=== PATIENT | female | born 1985 | race Two or more races ===

== ENCOUNTER 2016-12-08 08:04 | Inpatient (IN) | payer OTHER ==
[2016-12-08] VITALS (11 sets, daily range): BP systolic 83–119; BP diastolic 54–83
[~2016-12-08] VITALS: Ht 157.5 cm; Wt 52.6 kg
[~2016-12-08 08:04] MED LIST: Dexamethasone 20mg/5ml IVP ONE; ceFAZolin sod 1 GM in NS 55 ML IVPB ONE
[2016-12-08] MEDS ORDERED: NORCO 5-325 TA1 EAC1 ORAL (08:24)
[2016-12-08] MEDS ORDERED: Lidocaine 1% Plain 30 ml INJ ONE (09:13)
[2016-12-08] MEDS ORDERED: Thrombin 5000 units TOPIC ONE (09:13)
[2016-12-08] MEDS ORDERED: Ropivacaine 5mg/ml Vial 20ml INJ ONE (09:14)
[2016-12-08] MEDS ORDERED: Bacitracin 50000 Units Vial ONE (09:14)
[2016-12-08] MEDS ORDERED: Vancomycin 1gm inj IVPB ONE (09:15)
[2016-12-08] MEDS ORDERED: traMADol 50mg tab ORAL PRN (09:30)
[2016-12-08] MEDS ORDERED: PCA HYDROmorphone 1mg/ml 30 ML IV PRN (09:30)
[2016-12-08] MEDS ORDERED: Tylenol #3 tab (300mg/30mg) ORAL PRN (09:30)
[2016-12-08] MEDS ORDERED: oxyCODONE 5mg IR tab ORAL PRN ×2 (09:30)
[2016-12-08] MEDS ORDERED: Norco 10mg/325mg tab ORAL PRN (09:30)
[2016-12-08] MEDS ORDERED: Morphine Sulfate 4mg/ml Inj IM PRN (09:30)
[2016-12-08] MEDS ORDERED: Surgicel 4in x 8in TOPIC ONE (09:39)
[2016-12-08] MEDS ORDERED: LR 1000ml ONE (10:00)
[2016-12-08] MEDS ORDERED: Metoprolol 5mg/5ml Inj ONE (10:00)
[2016-12-08] MEDS ORDERED: Neostigmine 1mg/ml 10ml Inj ONE (10:00)
[2016-12-08] MEDS ORDERED: Zemuron 50mg/5ml Inj IV ONE (10:00)
[2016-12-08] MEDS ORDERED: fentaNYL 100 mcg/2 mL IV ONE (10:00)
[2016-12-08] MEDS ORDERED: Sterile Water Irrig 1000ml IRRIG ONE (10:00)
[2016-12-08] MEDS ORDERED: Lidocaine 1% MPF 10mg/ml 5ml ONE (10:00)
[2016-12-08] MEDS ORDERED: Labetalol 5mg/ml 20ml vial IV ONE (10:00)
[2016-12-08] MEDS ORDERED: fentaNYL 250mcg/5ml ONE (10:00)
[2016-12-08] MEDS ORDERED: Propofol 10mg/ml 20ml IV ONE (10:00)
[2016-12-08] MEDS ORDERED: Glycopyrrolate 0.2mg/ml 1ml Vial ONE (10:00)
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
--- NOTE | 2016-12-08 10:09 | Pre-Procedure Note/Attestation ---
Pre-Procedure Note/Attestation Complete Prior to Procedure Procedure Narrative: Artificial Disk Replacement, possible fusion: C4-5, C5-6 Indications for Procedure Pre-Operative Diagnosis: Postraumatic Neck Pain, Disk Protrusion Attestation I attest that I discussed the nature of the procedure; its benefits; risks and complications; and alternatives (and the risks and benefits of such alternatives ), prior to the procedure, with the patient (or the patient's legal registration representative). I attest that, if there was a reasonable possibility of needing a blood transfusion, the patient (or the patient's legal registration representative) was given the [facility] standardized written summary, pursuant to the [place] Blood Safety Act ([place] Health and Safety Code # 1645, as amended). I attest that I re-evaluated the patient just prior to the surgery and that there has been no change in the patient's H&P, except as documented below: PIERRE DEL ROSARIO Dec 08, 2016 10:09
[2016-12-08] MEDS ORDERED: LR 1000ml 1,000 ML IVLG SCH (11:04)
[2016-12-08] MEDS ORDERED: Labetalol 5mg/ml 20ml vial IV PRN (11:15)
[2016-12-08] MEDS ORDERED: Hydromorphone 0.5mg/0.5ml inj IVP PRN (11:15)
[2016-12-08] MEDS ORDERED: fentaNYL 100 mcg/2 mL IV PRN (11:15)
[2016-12-08] MEDS ORDERED: Metoclopramide 10mg/2ml Inj IVP PRN (11:15)
[2016-12-08] MEDS ORDERED: Oxycodone/Acetaminophen 5-325 ORAL PRN (11:15)
[2016-12-08] MEDS ORDERED: DiphenhydrAMINE 50mg/ml Inj IVP PRN (11:15)
[2016-12-08] MEDS ORDERED: Norco 7.5mg/325mg tab ORAL PRN (11:15)
[2016-12-08] MEDS ORDERED: LORazepam Inj 2mg/ml 1ml IV PRN (11:15)
[2016-12-08] MEDS ORDERED: Atropine Inj 1mg/10ml Syr IV PRN (11:15)
[2016-12-08] MEDS ORDERED: Norco 5mg/325mg tab ORAL PRN (11:15)
[2016-12-08] MEDS ORDERED: Midazolam 2mg/2ml Inj IVP PRN (11:15)
[2016-12-08] MEDS ORDERED: Meperidine 25mg/ml Inj IV PRN (11:15)
--- NOTE | 2016-12-08 11:21 | Immediate Post-Op Evaluation ---
Immediate Post-Op Evalulation Immediate Post-Op Evalulation Procedure: ADR C4-5, C5-6 Date of Evaluation: Dec 08, 2016 Time of Evaluation: 13:37 IV Fluids: 1100 LR Blood Products: 0 Estimated Blood Loss: 75 Urinary Output: 0 Blood Pressure Systolic: 87 Blood Pressure Diastolic: 53 Pulse Rate: 77 Respiratory Rate: 16 O2 Sat by Pulse Oximetry: 94 Pain Score (1-10): 2 Nausea: No Vomiting: No Complications 0 Patient Status: awake, reacts, patent, extubated, none Hydration Status: adequate Dru Grams Ancef IV Given Within 1 Hr of Incision: Yes Time Given: 10:16 Maycol Luciano MD Dec 08, 2016 11:21
--- NOTE | 2016-12-08 11:28 | 48 Hour Post Anesthesia Eval ---
Post Anesthesia Evaluation Procedure: ADR C4-5, C5-6 Date of Evaluation: Dec 08, 2016 Time of Evaluation: 15:48 Blood Pressure Systolic: 106 0: 62 Pulse Rate: 78 Respiratory Rate: 18 Temperature (Fahrenheit): 98.2 O2 Sat by Pulse Oximetry: 100 Airway: patent Nausea: No Vomiting: No Pain Intensity: 3 Hydration Status: adequate Cardiopulmonary Status: Stable Mental Status/LOC: patient returned to baseline Follow-up Care/Observations: 0 Post-Anesthesia Complications: 0 Follow-up care needed: ready to discharge Maycol Luciano MD Dec 08, 2016 11:27
[2016-12-08] MEDS ORDERED: Acetaminophen (Non formulary) 100 ML IV ONE (11:45)
[2016-12-08] MEDS ORDERED: Naloxone 0.4mg/ml Inj IVP PRN (11:45)
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
[2016-12-08] MEDS ORDERED: D5 1/2NS 1,000 ML IV SCH (13:13)
--- NOTE | 2016-12-08 13:13 | Brief Operative Note ---
Immediate Post Operative Note Operative Note Pre-op Diagnosis: Postraumatic Neck Pain, Disk Protrusion Procedure: Artificial Disk Replacement C4-5, C5-6. SSEP, Xray, Microscope Post-op Diagnosis: same as pre-op Findings: consistent w/pre-op dx studies Surgeon: Rayray Cosmetology Professor: Salo PIKE Anesthesiologist: Ankita Anesthesia: general Specimen: none Complications: none Condition: stable Estimated Blood Loss: minimal Drains: none Implant(s) used?: Yes PIERRE DEL ROSARIO Dec 08, 2016 13:13
[2016-12-08] MEDS ORDERED: ceFAZolin sod 1 GM in D5W 55 ML IV SCH (16:00)
[2016-12-08] MEDS ORDERED: HYDROmorphone 1mg/ml Carpuject SUBQ PRN ×2 (17:15)
[2016-12-08] MEDS ORDERED: Milk of Magnesia 30ml Ud ORAL PRN (17:30)
[2016-12-08] MEDS ORDERED: Docusate 100mg cap ORAL SCH (18:00)
[2016-12-08] MEDS ORDERED: D5NS 1000ml IV ONE (20:19)
--- NOTE | 2016-12-08 20:48 | Operative Note - Dictated ---
DATE OF OPERATION: 12/08/2016 SURGEON: Santi Seo, Ph.D., M.D. DEPUTY GRAND JURY: SHAHZAD Ellison. ANESTHESIA: Dr. Luciano, general with intubation. ADMITTING/PREOPERATIVE DIAGNOSIS: Posttraumatic discogenic neck pain, severe. POSTOPERATIVE DIAGNOSIS: Posttraumatic discogenic neck pain, severe. OPERATIVE PROCEDURE: 1. Anterior artificial disc replacement, C4-C5, C5-C6. 2. Intraoperative fluoroscopy. 3. Intraoperative x-rays interpreted by surgeons. 4. SSEP monitoring. ESTIMATED BLOOD LOSS: Minimal. COMPLICATIONS: None. POSTOPERATIVE CONDITION: Good/stable. PROCEDURE: The patient was brought to the operating room in the supine position. General anesthesia with intubation was induced. Intravenous antibiotics and 80 mg intravenous Decadron were administered 30 minutes prior to incision time. The patient was in appropriate position. Marker was placed on the contralateral (right) side of the neck without penetration of the skin at any point. A cross-table image was obtained demonstrating the correct level for incision placement. Marker was removed. Utilization of a skin fold left was marked appropriately. Anterior cervical spine was sterilely prepped and draped free in usual sterile fashion. A 15 mm incision placed in the skin fold left lateral was sharply placed in the dermis and epidermis. Electrocautery dissection was carried through the subcutaneous tissue to the level of the platysmas muscle was identified isolated and transected in line with the incision. Blunt dissection was sequentially carried through the deep cervical and pretracheal fascia medial to the carotid sheath to the midline between the right and left longus colli muscles. The prevertebral fascia was incised. The spinal needle was bent at 90 degrees so as to avoid penetration greater than 3 mm into this space was placed under direct observation and a cross-table image was obtained under sterile conditions demonstrating the correct level for further dissection. Level was marked. Needle was removed. Retractors were placed. Under high-power magnification, at the C4-C5 interval, discectomy was performed to the posterior longitudinal ligament. Posterior longitudinal ligament was excised. Appropriate technique was utilized for implantation of the artificial disc after sizing with fluoroscopic guidance with drilling real placement and disc implantation. Fit excellent. Retractors were placed at the C5-C6 interval. Discectomy performed too, but not through the posterior longitudinal ligament. Posterior longitudinal ligament was resected. Appropriate technique was utilized for placement of the artificial disc. After the appropriate sizing was determined with fluoroscopic guidance and under high-power magnification guidance with drilling, where a guide cutting followed with implantation of the appropriately sized artificial disc. Excellent positioning. FloSeal was applied. Wound was copiously irrigated with antibiotic-containing saline. Exploration did not reveal any obvious excoriation or laceration of vital structures. The patient was stable at all times. Reapproximation of the platysmas muscle followed with reapproximation with subcuticular closure. PDS suture of dermis and epidermis. Surgical strips were applied under sterile conditions. Sterile bandage was applied. Maintained in place with tape. The patient was awakened and extubated in the operating room and transported to postoperative recovery in good stable condition. Santi Seo M.D. DR: THYuniel JOB#: [id number] CC:
--- NOTE | 2016-12-20 14:09 | Diagnostic Imaging Report ---
Indication: PAIN neck pain, intraoperative Technique: Digital intraoperative images Comparison: None Findings: Initial images demonstrate surgical tool projected over the C4-5 disc. Subsequent images demonstrate placement of disc prostheses at C4-5 and C5-6. Impression: Intraoperative imaging, as described
== END 2016-12-08 20:20 | disposition home or self-care (01) | DRG 518 ==
LOC: SDSOVERFLO 08:04 → OBSVTOIN 08:04 → INTOOBSV 08:04 → 3E 13:42
PROC: 4A10X4G Monitoring of Central Nervous Electrical Activity, Intraoperative, External Approach (ICD-10-PCS; principal; 2016-12-08 09:00)
PROC: 0RR30JZ Replacement of Cervical Vertebral Disc with Synthetic Substitute, Open Approach (ICD-10-PCS; principal; 2016-12-08 09:00)
DX: M50.121 Cervical disc disorder at C4-C5 level with radiculopathy (principal); G89.18 Other acute postprocedural pain; R20.2 Paresthesia of skin; G56.23 Lesion of ulnar nerve, bilateral upper limbs
CPT/HCPCS: 0098T; 22861; 36415; 72040; 76001; 86850; 86900; 86901; 87081; 94003; 94150; G0378; J2710